=== PATIENT | female | born 1955 | race African-American/Black ===

== ENCOUNTER 2022-06-26 11:39 | Emergency (ER) | payer OTHER ==
[~2022-06-26] VITALS: Ht 162.6 cm; Wt 60.0 kg
[2022-06-26 12:39] VITALS: BP 121/63
[2022-06-26 13:01] LABS: HEMATOCRIT. 37.3 % (36.0-48.0); HEMOGLOBIN. 12.5 g/dL (12.0-16.0); MEAN CORPUSCULAR HEMOGLOBIN 27.2 pg (28.0-32.0); MEAN CORPUSCULAR VOLUME 81.4 fL (81.0-99.0); MEAN PLATELET VOLUME 8.8 fl (7.4-10.4); PLATELET 230 x1000/uL (130-400); RED BLOOD CELL COUNT 4.58 mill/uL (4.2-5.4); RED CELL DISTRIBUTION WIDTH 14.8 % (11.6-14.6)
[2022-06-26 13:06] LABS: CHLORIDE 105 mEq/L (98-107)
[2022-06-26 13:08] LABS: INR 1.1; PROTHROMBIN TIME 11.7 sec (9.6-11.0)
[2022-06-26 13:24] LABS: PLATELET ESTIMATE NORMAL
[2022-06-26] MEDS ORDERED: BACITRACIN ZINC OINT UDPKT TOP ONE (14:30)
== END 2022-06-26 15:45 | disposition home or self-care (01) ==
LOC: ER 11:39 → CANBEDREQ 06-27 12:28
DX: R55 Syncope and collapse (principal); R10.9 Unspecified abdominal pain; E11.9 Type 2 diabetes mellitus without complications
CPT/HCPCS: 36415; 71045; 80053; 84484; 85025; 93005; 99285